=== PATIENT | male | born 1990 | race Hispanic/Latino ===

== ENCOUNTER → 2019-09-01 | Outpatient (CLI) | payer SELFPAY ==
--- NOTE | 2019-09-01 10:55 | Diagnostic Imaging Report ---
MRI of the right ankle without contrast. History: Ankle pain. Sprain. Fall. Decreased range of motion. Inflammation. Technique: Utilizing a high-field 1.5T magnet, the following sequences were acquired: PD FS in all 3 planes with additional axial PD. Comparison: None. Findings: Achilles tendon and plantar fascia: The Achilles tendon and plantar fascia are normal. Minimal retrocalcaneal bursal fluid. Cartilage and bone: Negative for osteochondral lesion of the tibiotalar and subtalar joints. Negative for fracture, osteonecrosis, or dislocation. Mild bone marrow edema in the anterior medial talus likely due to a contusion or stress response. No cortical fracture is seen. Medial ankle: The deltoid ligament complex is intact. The medial flexor tendons are normal. There is a physiologic amount of fluid within the tendon sheath of FHL. Lateral ankle: The anterior talofibular, calcaneofibular, and posterior talofibular ligaments are intact. The syndesmotic ligaments are intact. The peroneal tendons are normal. Anterior ankle: The anterior extensor tendons are normal. Other findings: Small tibiotalar joint effusion and mild synovitis. Impression: Mild bone marrow edema in the anterior medial talus likely due to a contusion or stress response. No cortical fracture is seen. No ligamentous or tendon tear is seen. Signed by: Dr. Erick Morgan M.D. on 09/01/2019 10:52 AM
== END ==
LOC: MRI 09:29
PROVIDERS: ATTEND Family Medicine
DX: S93.411D Sprain of calcaneofibular ligament of right ankle, subsequent encounter (principal)